=== PATIENT | female | born 1955 | race Caucasian/White ===

== ENCOUNTER 2017-06-10 23:10 | Emergency (ER) | payer OTHER ==
[~2017-06-10] VITALS: Ht 167.6 cm; Wt 84.0 kg
[~2017-06-10 23:10] MED LIST: ALEVE220 M2 PO; ASPIR-LOW81 MG PO; BUPROPION XL150 MG PO; CIPRO500 MG PO; CYCLOBENZAPRINE10 MG PO; DIAZEPAM5 MG PO; HYDROCHLOROTHIA25 MG PO; NAPROSYN500 MG PO; PERCOCET 5/31 TABLET PO; PREDNISONE20 MG PO; PYRIDIUM100 MG PO; TRAMADOL HCL50 MG PO; TYLENOL ARTHRI650 MG PO; ULTRAM50 MG PO; ZOFRAN ODT4 MG PO
[2017-06-11 01:30] VITALS: BP 150/75
== END 2017-06-11 01:50 | disposition home or self-care (01) ==
LOC: EME 23:10
PROC: 0HQLXZZ Repair Left Lower Leg Skin, External Approach (ICD-10-PCS; principal; 2017-06-10)
DX: I83.892 Varicose veins of left lower extremity with other complications (principal)
CPT/HCPCS: 99281; 99283